=== PATIENT | female | born 1975 | race Caucasian/White ===

== ENCOUNTER 2020-12-07 15:55 | Emergency (ER) | payer OTHER ==
[~2020-12-07] VITALS: Ht 165.1 cm; Wt 70.3 kg
[2020-12-07] MEDS ORDERED: RESTORIL30 M1 PO (16:58)
[2020-12-07] MEDS ORDERED: RESTORIL15 M1 PO (16:58)
== END 2020-12-07 20:06 | disposition home or self-care (01) ==
LOC: ER 15:55
DX: R51.9 Headache, unspecified (principal)